=== PATIENT | male | born 1965 | race American Indian/Alaskan Native ===

== ENCOUNTER 2025-01-04 08:46 | Emergency (ER) | payer MEDICAID ==
[~2025-01-04] VITALS: Ht 190.5 cm; Wt 114.9 kg
--- NOTE | 2025-01-04 09:00 | Physician Documentation ---
History of Present Illness Chief Complaint: Vomiting Stated Complaint: N/V HPI 59-year-old male presents to the ED with a complaint of abdominal pain acute onset abdominal bruising right shoulder pain and difficulty swallowing along with vomiting. This all started when he choked on a corn dog three days ago. Denies any shoulder injuries. He reports that since this he has been vomiting uncontrollably. He has not been able to keep anything down. Anything that he eats or drinks seems to get stuck and he vomits it back up. He feels a pain around his epigastric area and this is where he feels like things get stuck. He also has noticed some bruising on his abdomen. He denies any trauma. States that the pain will radiate to his back towards his shoulder blade. No reports of any fever, chills or any other associated symptoms. Day of Onset: Jan 04, 2025 Medication Reconciliation Allergies: Coded Allergies: No Known Allergies (Unverified , 01/04/25) Past Medical History Past Medical History: No Pertinent History Alcohol Use: Occasionally Drug Use: none Lives In: Home Occupation: employed Review of Systems All Other Systems at this time: Reviewed and Negative ROS As stated above in the HPI, otherwise all systems are reviewed and negative. Physical Exam Physical Exam General: Alert, no apparent distress. Neck: Full range of motion. Respiratory: Lungs clear, no respiratory distress. Chest: No accessory muscle use. Cardiovascular: Regular rate and rhythm, no murmurs. Gastrointestinal: Soft, slight tenderness to palpation over the epigastrium, nondistended. Bowels sounds present. There are several spots of ecchymoses over the abdomen. Extremities: Normal range of motion, no deformity. Neurologic: Oriented x4. Psychiatric: Normal mood and affect. Skin: anterior abdomen a 3 x 4 cm spot of ecchymosis Progress EKG/XRAY/CT/US/VASC/MRI EKG : Additional Comment Normal sinus rhythm with a rate of 69 beats per minute, no ischemia, normal axis Chest X-Ray : Additional Comments CHEST RADIOGRAPH Indication: CP Technique: Single frontal view of the chest was obtained Comparison: None FINDINGS: Lines and Tubes: None Lungs: No focal consolidation. Pleura: No effusion. No pneumothorax. Cardiomediastinal contours: Unremarkable Bones: No acute osseous abnormality. IMPRESSION: No acute cardiopulmonary disease. : Interpreted By: both Impression CT CHEST, ABDOMEN AND PELVIS CLINICAL HISTORY: pain NO CONTRAST TECHNIQUE: Multiple contiguous axial images of the chest, abdomen and pelvis with intravenous contrast. The images were reformatted degenerate coronal and sagittal reconstructions. 100 cc of Omnipaque 300 contrast was injected intravenously. All CT scans at this medical facility are performed using dose modulation techniques as appropriate to a performed exam including the following:Automated exposure control was utilized; adjustment of the MA and/or KV according to patient size; and use of iterative reconstruction technique. Radiation Dose Information: CT Dose: CTDI volume is 22 mGy. Dose-length product is 1527 mGy*cm FINDINGS: The lungs are clear without evidence of consolidation. There is no pleural effusion or pneumothorax. There is no suspicious appearing pulmonary nodule or mass. There is no evidence of a mediastinal mass or lymphadenopathy. There is no axillary lymphadenopathy. There is a 3.2 cm heterogeneous structure with air- filled foci in the lower thoracic esophagus. The thoracic esophagus proximal to this is dilated and fluid-filled. The heart size within normal limits. There is no pericardial effusion. The liver, gallbladder, pancreas, kidneys, adrenal glands, and spleen appear within normal limits. There is no evidence of abdominal lymphadenopathy. There is no free fluid or free air. The stomach grossly appears unremarkable.The small and large bowel loops demonstrate normal caliber. A normal appearing appendix is seen in the right lower quadrant abdomen. The abdominal aorta and IVC appear within normal limits. The bladder appears unremarkable. Pelvic organ appears within normal limits. There is no evidence of a pelvic mass or lymphadenopathy. There is no free fluid collection. There is no acute osseous abnormality. IMPRESSION: 1. 3.2 cm heterogeneous structure with air-filled foci in the lower thoracic esophagus. The thoracic esophagus proximal to this is dilated and fluid-filled. Clinical correlation is recommended. 2. Otherwise, there is no acute process in the chest, abdomen and pelvis. Ultrasound : Interpreted By: both Ultrasound of: abdomen Impression INDICATION: RUQ pain TECHNIQUE: Multiple real-time sonographic images of the abdomen were obtained. COMPARISON: None FINDINGS: The liver is homogenous in echogenicity. The liver measures 16cm. No intrahepatic biliary ductal dilatation is noted. The gallbladder wall measures 0.2 cm and is unremarkable. No gallstones or sludge is seen. The common duct measures 0.4 cm and is unremarkable. No pericholecystic fluid is noted. The right kidney measures 12cm. No hydronephrosis. The pancreas is not well visualized due to obscuration from bowel gas. The visualized portions of the IVC and aorta are grossly unremarkable. IMPRESSION: Normal exam of the abdomen. Medical Decision Making Differential Dx:Considerations: Include: AAA, Angina/MA, Aortic dissection, Appendicitis, Bowel obstruction, Cholangitis, Cholelithasis, Constipation, Diverticular disease, Esophageal rupture, Esophagitis, Gastritis/PUD, Gastroenteritis, GI hemorrhage, Hernia, Hepatitis, Inflammatory BD, Ischemic bowel, Pancreatitis, Porphyria, Testicular torsion, Trauma, intraabdominal, Urinary obstruction, Urinary tract infection, Urolithiasis, Other Additional Comments 59-year-old male presenting with nausea and vomiting secondary to a food bolus which is impacted in his esophagus. This was seen on CT of the and pelvis. Patient has been nauseated and vomiting for three days unable to pass any solids or liquids past the obstruction. I consulted our acoustical installer Dr. Loza who will come see the patient and take him to the OR for an upper GI endoscopy for removal. Patient was informed of this and he was amenable to the plan. Upper GI endoscopy was done by Dr. Cuellar today which showed a food bolus in the distal esophagus. This was successfully removed. Additionally there was grade D chronic and erosive esophagitis found as well. This was biopsied. As per GI instructions are to start Protonix 40 mg twice a day until repeat upper GI endoscopy to be performed in three months. Patient was also instructed to call the GI Clinic in one week for the results of the biopsy. I advised the patient that he needs to stay on a soft liquid diet for next couple of days and then advance as tolerated. I advised him that he is to take the medication as prescribed as well and then needs to follow up with a primary care physician as well as GI. Return to the ED with any worsening symptoms. Departure Disposition: HOME / SELF CARE / HOMELESS Impression: Primary Impression: Foreign body in esophagus Additional Impressions: Food impaction of esophagus Esophagitis Condition: Improved Discharge Instructions: Esophagitis, Upper Endoscopy, Adult Referrals: NO PRIMARY CARE PROVIDER (PCP) Prescriptions Pantoprazole Sodium (PROTONIX tablet) 40 Mg Tablet. 1 TAB PO BID for 90 Days, #180 TAB 0 Refills Prov: AMELIA RODRIGUEZ MD 01/04/25 Comments - take medication as prescribed - start with a soft liquid diet for the next couple of days and then advance as tolerated - abstain from any alcohol use and stay away from spicy foods - call GI clinic in one week to obtain biopsy results - follow up with GI for repeat upper GI endoscopy in three months - follow-up with a new primary care physician in the next 1-2 weeks - return to the emergency department with any worsening symptoms. Education Educated: Patient Educated regarding: diagnosis, treatment, prognosis Additional Comment - take medication as prescribed - start with a soft liquid diet for the next couple of days and then advance as tolerated - abstain from any alcohol use and stay away from spicy foods - call GI clinic in one week to obtain biopsy results - follow up with GI for repeat upper GI endoscopy in three months - follow-up with a new primary care physician in the next 1-2 weeks - return to the emergency department with any worsening symptoms. Signature Scribe Signature: 1 Attestation: 1 CHERY CARLSON NP Jan 04, 2025 09:00 AMELIA RODRIGUEZ MD Jan 04, 2025 10:45
[2025-01-04 09:25] LABS: BASOPHILS # (AUTO) 0.1 X10'3 (0-0.2); EOSINOPHILS # (AUTO) 0.1 X10'3 (0-0.9); EOSINOPHILS % (AUTO) 1.1 % (0-6); HEMATOCRIT 54.5 % (42.0-52.0); LYMPHOCYTES # (AUTO) 1.6 X10'3 (1.1-4.8); LYMPHOCYTES % (AUTO) 13.6 % (21-51); MEAN CORPUSCULAR HEMOGLOBIN 30.7 PG (27.0-31.0); MEAN CORPUSCULAR HGB CONC 33.8 g/dL (33.0-36.5); MEAN CORPUSCULAR VOLUME 90.9 FL (78-98); MEAN PLATELET VOLUME 7.8 FL (7.4-10.4); MONOCYTES # (AUTO) 1.1 X10'3 (0-0.9); MONOCYTES % (AUTO) 9.8 % (2-12); NEUTROPHILS # (AUTO) 8.7 X10'3 (1.8-7.7); NEUTROPHILS % (AUTO) 74.5 % (42-75); PLATELET COUNT 359 X10'3 (140-440); RED BLOOD COUNT 5.99 X10'6 (4.70-6.10); RED CELL DISTRIBUTION WIDTH 13.9 % (11.5-14.5); WHITE BLOOD COUNT 11.7 X10'3 (4.5-11.0)
[2025-01-04 09:30] LABS: HEMOGLOBIN 18.4 g/dl (14.0-17.9)
--- NOTE | 2025-01-04 09:38 | RADIOLOGY REPORT ---
CHEST RADIOGRAPH Indication: CP Technique: Single frontal view of the chest was obtained Comparison: None FINDINGS: Lines and Tubes: None Lungs: No focal consolidation. Pleura: No effusion. No pneumothorax. Cardiomediastinal contours: Unremarkable Bones: No acute osseous abnormality. IMPRESSION: No acute cardiopulmonary disease.
[2025-01-04 09:45] LABS: ALANINE AMINOTRANSFERASE 24 U/L (12-78); ALBUMIN/GLOBULIN RATIO 0.9 (1.1-1.5); ALKALINE PHOSPHATASE 118 IU/L (46-116); ANION GAP 11 (8-16); ASPARTATE AMINO TRANSFERASE 21 U/L (10-37); BLOOD UREA NITROGEN 28 MG/DL (7-18); BUN/CREATININE RATIO 20.4 (10.0-20.0); CALCIUM 9.2 MG/DL (8.5-10.1); CHLORIDE 104 MMOL/L (99-107); CREATININE 1.37 MG/DL (0.60-1.10); GLUCOSE 117 MG/DL (70-104); LIPASE 27 U/L (16-77); POTASSIUM 4.8 MMOL/L (3.5-5.1); SODIUM 140 MMOL/L (135-145); TOTAL CARBON DIOXIDE 25.1 MMOL/L (24-32); TOTAL PROTEIN 8.4 G/DL (6.4-8.2); eCRCL 71 ML/MIN; eGFR 54 ML/MIN
[2025-01-04] MEDS: ondansetron/PF 4mg/2ml inj IV ONE (10:08)
[2025-01-04] MEDS: normal saline 1000ML IV soln IVB ONE (10:08)
[2025-01-04] MEDS: ketorolac trometh 30MG/ML vial 30 MG/ML VIAL IV ONE (11:23)
--- NOTE | 2025-01-04 11:23 | RADIOLOGY REPORT ---
CT CHEST, ABDOMEN AND PELVIS CLINICAL HISTORY: pain NO CONTRAST TECHNIQUE: Multiple contiguous axial images of the chest, abdomen and pelvis with intravenous contras t. The images were reformatted degenerate coronal and sagittal reconstructions. 100 cc of Omnipaque 300 contrast was injected intravenously. All CT scans at this medical facility are performed using dose modulation techniques as appropriate t o a performed exam including the following:Automated exposure control was utilized; adjustment of the MA and/or KV according to patient size; and use of iterative reconstruction technique. Radiation Dose Information: CT Dose: CTDI volume is 22 mGy. Dose-length product is 1527 mGy*cm FINDINGS: The lungs are clear without evidence of consolidation. There is no pleural effusion or pneumothorax. There is no suspicious appearing pulmonary nodule or mass. There is no evidence of a mediastinal mass or lymphadenopathy. There is no axillary lymphadenopathy . There is a 3.2 cm heterogeneous structure with air-filled foci in the lower thoracic esophagus. The thoracic esophagus proximal to this is dilated and fluid-filled. The heart size within normal limits. There is no pericardial effusion. The liver, gallbladder, pancreas, kidneys, adrenal glands, and spleen appear within normal limits. There is no evidence of abdominal lymphadenopathy. There is no free fluid or free air. The stomach grossly appears unremarkable.The small and large bowel loops demonstrate normal caliber. A normal appearing appendix is seen in the right lower quadrant abdomen. The abdominal aorta and IVC appear within normal limits. The bladder appears unremarkable. Pelvic organ appears within normal limits. There is no evidence o f a pelvic mass or lymphadenopathy. There is no free fluid collection. There is no acute osseous abnormality. IMPRESSION: 1. 3.2 cm heterogeneous structure with air-filled foci in the lower thoracic esophagus. The thoracic esophagus proximal to this is dilated and fluid-filled. Clinical correlation is recommended. 2. Otherwise, there is no acute process in the chest, abdomen and pelvis. HS:Y
[2025-01-04] MEDS: metoclopramide 5 mg/ml inj IV ONE (11:27)
--- NOTE | 2025-01-04 11:43 | RADIOLOGY REPORT ---
INDICATION: RUQ pain TECHNIQUE: Multiple real-time sonographic images of the abdomen were obtained. COMPARISON: None FINDINGS: The liver is homogenous in echogenicity. The liver measures 16cm. No intrahepatic biliary ductal dilatation is noted. The gallbladder wall measures 0.2 cm and is unremarkable. No gallstones or sludge is seen. The commo n duct measures 0.4 cm and is unremarkable. No pericholecystic fluid is noted. The right kidney measures 12cm. No hydronephrosis. The pancreas is not well visualized due to obscuration from bowel gas. The visualized portions of the IVC and aorta are grossly unremarkable. IMPRESSION: Normal exam of the abdomen.
--- NOTE | 2025-01-04 12:36 | ELECTROCARDIOGRAPH REPORT ---
[facility] Test Date: 2025-01-04 Test Time: 10:13:39 Pat Name: ELMA SNIDER Department: EMERGENCY ROOM Room: Gender: M Painting Supervisor: : [id number] Requested By: AMELIA RODRIGUEZ Order Number: [id number] Reading MD: Dr. Kishor Araujo Measurements Intervals [place] Rate: 69 P: 19 FL: 152 QRS: -12 QRSD: 89 T: 72 QT: 387 QTc: 415 Interpretive Statements Sinus rhythm Inferior infarct, old Electronically Signed On 01-04-2025 19:02:[address] Kishor Araujo Please click the below link to view image of tracing.
[2025-01-04] MEDS ORDERED: LIDOcaine 2% Viscous 15ml cup ONE (14:42)
[2025-01-04 14:50] VITALS: BP 156/86; PULSE 76; RESP 17
[2025-01-04] MEDS ORDERED: MIDAZolam 1 MG/ML 5ML VIAL ONE (15:31)
[2025-01-04] MEDS ORDERED: fentaNYL/PF 50MCG/1 ML 2ML syringe ONE ×2 (15:31→15:42)
[2025-01-04] MEDS ORDERED: simethicone 40mg/0.6ml oral drops 30ml ONE (15:38)
[2025-01-04 16:15] VITALS: BP 140/91; PULSE 79; RESP 14; O2SAT 94
[2025-01-04 16:25] VITALS: BP 127/89; PULSE 82; RESP 13; O2SAT 92
[2025-01-04 16:35] VITALS: BP 137/92; PULSE 75; RESP 17; O2SAT 92
[2025-01-04 16:45] VITALS: BP 139/81; PULSE 78; RESP 18; O2SAT 95
[2025-01-04] MEDS ORDERED: PANT-47 PO (18:01)
[2025-01-04 18:37] VITALS: BP 124/80; PULSE 70; RESP 18; TEMP 97.6; O2SAT 99
--- NOTE | 2025-01-06 17:11 | PATHOLOGY REPORT ---
[facility] [address] [place] [address] SURGICAL PATHOLOGY REPORT CaseNumber: [id number] Surgeon:Trent Loza M.D. CLINICAL INFORMATION CLINICAL INFORMATION: Esophageal dysphagia and foreign body, food bolus. Rule out H. pylori. DIAGNOSIS DIAGNOSIS: A.STOMACH, ANTRUM; BIOPSY - MINIMAL CHRONIC INFLAMMATION. - NEGATIVE FOR INTESTINAL METAPLASIA. - NEGATIVE FOR H. PYLORI BY IMMUNOPEROXIDASE STUDY. - NEGATIVE FOR DYSPLASIA/NEOPLASIA. DIAGNOSIS: B.ESOPHAGUS, DISTAL; BIOPSY - SQUAMO-GLANDULAR JUNCTIONAL MUCOSA. - BENIGN ULCER, SUBACUTE CENTERED ON SQUAMOUS MUCOSA. - NEGATIVE FOR INTESTINAL METAPLASIA. - POSITIVE FOR RARE FUNGAL FORMS BY GMS STAIN. - NEGATIVE FOR DYSPLASIA/NEOPLASIA. MICROSCOPIC DESCRIPTION A. STOMACH, ANTRUM MICROSCOPIC DESCRIPTION: One H&E stained slide from part A is examined. Present are four pieces of ga stric antral mucosa. There are some specialized glands in at least one of the pieces suggesting trans itional zone. There is a minimal chronic inflammatory infiltrate composed predominantly of lymphocyte s. There is no significant active inflammation and no intestinal metaplasia, confirmed with Alcian bl ue/PAS stain. Immunoperoxidase study for H. pylori does not highlight organisms. There is no dysplasi a/neoplasia. B. ESOPHAGUS, DISTAL MICROSCOPIC DESCRIPTION: One H&E stained slide from part B is examined. Present are pieces of squamou s and glandular mucosa. There is ulceration with granulating tissue base centered on the squamous muc dean. There is mild to moderate squamous basilar hyperplasia, significant intra-squamous epithelial ne utrophils, and a parakeratotic scale. The glandular mucosa contains a moderate chronic inflammatory i nfiltrate composed predominantly of lymphocytes and plasma cells. There is mild glandular epithelial atypia which matures with ascent consistent with reactive/regenerative atypia. There is no intestinal metaplasia, confirmed with Alcian blue/PAS stain. GMS stain for fungus highlights rare yeast forms. There is no dysplasia/neoplasia. (st) GROSS DESCRIPTION A. STOMACH, ANTRUM GROSS DESCRIPTION: Received in a container of formalin labeled with the patients name, number, and "a ntrum BX" are four pieces of hernandez tissue 0.2-0.7 x 0.1 x 0.1 cm. The specimen is entirely submitted as A1. The time at which the specimen was removed was 1608. The time at which the specimen was placed i n formalin was 1610. B. ESOPHAGUS, DISTAL GROSS DESCRIPTION: Received in a container of formalin labeled with the patient's name, number, and " distal esophagus BX" are three pieces of hernandez tissue 0.3-0.4 x 0.2 x 0.1 cm. The specimen is entirely submitted as B1. The time at which the specimen was removed was 161. The time at which the specimen was placed in formalin was 161. Electronically signed by: Pascual Conroy M.D. 01/06/2025 4:38:00 PM
== END 2025-01-04 18:41 | disposition home or self-care (01) ==
LOC: ER 08:47
DX: T18.128A Food in esophagus causing other injury, initial encounter (principal); K20.90 Esophagitis, unspecified without bleeding; M25.511 Pain in right shoulder; W44.F3XA Food entering into or through a natural orifice, initial encounter; Y93.89 Activity, other specified; Y92.89 Other specified places as the place of occurrence of the external cause; Y99.8 Other external cause status
CPT/HCPCS: 36415; 43239; 43247; 71045; 71250; 74176; 76700; 80053; 83690; 85025; 93005; 96361; 96374; 96375; 99285; J1885; J2250; J2405; J2765; J3010; J7030; Z7512; 99152; 99153; A4620; C1889